=== PATIENT | male | born 1995 ===

== ENCOUNTER → 2016-08-24 | Outpatient (CLI) | payer SELFPAY ==
--- NOTE | 2016-08-24 10:05 | CR ---
EXAMINATION: Right knee HISTORY: Pain COMPARISON: None TECHNIQUE: 3 views FINDINGS/IMPRESSION: There is a possible horizontal lucency along the posterior aspect of the tibial plateau, this could represent a subtle fracture. Bone mineralization and joint spaces are grossly p reserved. There is a trace suprapatellar joint fluid.
== END ==
LOC: MW.CHORTHO 08:53
PROVIDERS: ATTEND Orthopaedic Surgery
DX: M25.561 Pain in right knee (principal)
CPT/HCPCS: 73562-26-RT; 73562-RT